=== PATIENT | male | born 1995 | race Caucasian/White ===

== ENCOUNTER 2018-02-01 19:34 | Emergency (ER) | payer BC ==
[2018-02-01 19:46] VITALS: BP 138/76
--- NOTE | 2018-02-01 20:00 | UC ---
Skin Complaint HPI - HPI Summary HPI Summary: 22-year-old male comes to clinic today with a chief complaint of rash. Started a week ago. Started in the left elbow antecubital region. It does itch. It since spread to the inner thighs bilaterally and down on the ankles. He has been using calamine lotion which helps decrease the itch. No fevers or chills feels well. No sore throat. No known new food her close or exposures. - History of Current Complaint Chief Complaint: UCRash Time Seen by Provider: 02/01/18 19:42 Stated Complaint: RASH Pain Intensity: 0 Review of Systems All Other Systems Reviewed And Are Negative: Yes Constitutional: Positive: Negative Skin: Positive: Rash Eyes: Positive: Negative ENT: Positive: Negative Respiratory: Positive: Negative Cardiovascular: Positive: Negative Gastrointestinal: Positive: Negative Motor: Positive: Negative Neurovascular: Positive: Negative Musculoskeletal: Positive: Negative Neurological: Positive: Negative Psychological: Positive: Negative Is Patient Immunocompromised?: No PMH/Surg Hx/FS Hx/Imm Hx Previously Healthy: Yes - Surgical History Surgical History: None - Family History Known Family History: Positive: Non-Contributory - Social History Alcohol Use: Occasionally Substance Use Type: None Smoking Status (MU): Never Smoked Tobacco Physical Exam Triage Information Reviewed: Yes Appearance: Well-Appearing, No Pain Distress, Well-Nourished Vital Signs: Initial Vital Signs Temp 99.8 F 02/01/18 19:40 Pulse 81 02/01/18 19:40 Resp 18 02/01/18 19:40 BP 138/76 02/01/18 19:40 Pulse Ox 99 02/01/18 19:40 Vital Signs Reviewed: Yes Eye Exam: Normal Eyes: Positive: Conjunctiva Clear ENT: Negative: Nasal congestion, Nasal drainage Neck exam: Normal Neck: Positive: Supple Respiratory: Positive: No respiratory distress Musculoskeletal Exam: Normal Musculoskeletal: Positive: Strength Intact, ROM Intact Neurological Exam: Normal Neurological: Positive: Alert, Muscle Tone Normal Psychological Exam: Normal Psychological: Positive: Age Appropriate Behavior Skin: Positive: Other - Patient has large patches of erythematous flat rash. The left antecubital is 6 cm x 4 cm. It is spread on both inner thighs are without to the knees. It is circumferential around the ankles. Blanches. It is not hot to touch there is no drainage. No scaling. Course/Dx - Course Course Of Treatment: We will treat with a course of steroids and follow-up with dermatology. Patient is not ill he's not had any sore throat. Most probably allergic reaction to something environmental. We are checking a CRP CBC and CMP. I let the patient know if he feels ill or has any other current concerns he should get weak reevaluated right away. - Diagnoses Provider Diagnosis: Rash Discharge - Sign-Out/Discharge Documenting (check all that apply): Patient Departure All imaging exams completed and their final reports reviewed: No Studies - Discharge Plan Condition: Stable Disposition: HOME Prescriptions: predniSONE TAB* [Deltasone 20 MG TAB*] 40 mg PO DAILY #10 tab Patient Education Materials: Acute Rash (ED) Referrals: [facility] [place] [facility] REFERRAL [Outside] Raheem Goldman MD [Medical Doctor] - Additional Instructions: FOLLOW UP WITH YOUR DERMATOLOGY. GET RECHECKED FOR ANY WORSENING OF YOUR CONDITION; PAIN, FEVER, YOU FEEL ILL OR QUESTIONS OR CONCERNS. - Billing Disposition and Condition Condition: STABLE Disposition: Home
[2018-02-02 10:43] LABS: ABS Basophils 0 10^3/ul (0-0.2); ABS Eosinophils 0.7 10^3/ul (0-0.6); ABS Lymphocytes 1.5 10^3/ul (1.0-4.8); ABS Monocytes 0.6 10^3/ul (0-0.8); ABS Neutrophils 2.4 10^3/ul (1.5-7.7); ABS Nucleated RBC 0 10^3/ul; Hematocrit 43 % (42-52); Hemoglobin 14.9 g/dl (14.0-18.0); Lymphocyte % 28.6 %; Mean Corpuscular HGB Conc 35 g/dl (31-36); Mean Corpuscular Hemoglobin 32 pg (27-31); Mean Corpuscular Volume 91 fL (80-94); Mean Platelet Volume 8.6 fL (7.4-10.4); Nucleated Red Blood Cells % 0.1; Platelet Count 229 10^3/ul (150-450); Red Blood Count 4.72 10^6/ul (4.00-5.40); Red Cell Distribution Width 13 % (10.5-15); White Blood Count 5.3 10^3/ul (3.5-10.8)
[2018-02-02 10:57] LABS: EGFR Non-African American 88.7 (>60)
== END 2018-02-01 20:22 | disposition home or self-care (01) ==
LOC: UCEAST 19:34
DX: R21 Rash and other nonspecific skin eruption (principal)
CPT/HCPCS: 36415; 80053; 85025; 86140; 99201; G0463